=== PATIENT | male | born 1945 | race Caucasian/White ===

== ENCOUNTER 2016-11-02 07:55 | Outpatient (CLI) | payer MEDICARE, OTHER | END 2016-11-02 07:56 | disposition home or self-care (01) | DX: D50.9 Iron deficiency anemia, unspecified (principal) ==

== ENCOUNTER 2017-03-18 08:04 | Outpatient (CLI) | payer MEDICARE, OTHER ==
[2017-03-18 15:11] LABS: BASOPHILS # (AUTO) 0.1 10^3/uL (0.0-0.1); BASOPHILS % (AUTO) 0.8 %; EOSINOPHILS % (AUTO) 11.6 %; HCT - HEMATOCRIT 43.8 % (42.0-52.0); HGB - HEMOGLOBIN 14.8 g/dL (14.0-18.0); LYMPHOCYTES # (AUTO) 2.1 10^3/uL (1.5-3.5); MEAN CORPUSCULAR HEMOGLOBIN 30.2 pg (27.0-31.0); MEAN CORPUSCULAR HGB CONC 33.8 g/dL (32.0-36.0); MEAN CORPUSCULAR VOLUME 89.3 fL (80.0-94.0); MEAN PLATELET VOLUME 7.6 fL (7.4-11.4); MONOCYTES # (AUTO) 0.7 10^3/uL (0.0-1.0); MONOCYTES % (AUTO) 8.6 %; NEUTROPHILS # (AUTO) 4.5 10^3/uL (1.5-6.6); RED CELL DISTRIBUTION WIDTH 13.1 % (12.0-15.0); UNCORRECTED WHITE BLOOD COUNT 8.3 x10^3/uL; WHITE BLOOD COUNT 8.3 x10^3/uL (4.8-10.8)
== END 2017-03-18 08:05 | disposition home or self-care (01) ==
LOC: LAB.R 08:04
PROVIDERS: ATTEND Internal Medicine
DX: D50.9 Iron deficiency anemia, unspecified (principal)
CPT/HCPCS: 82728; 85025

== ENCOUNTER 2017-08-02 09:48 | Outpatient (CLI) | payer MEDICARE, OTHER ==
[2017-08-02 15:30] LABS: BASOPHILS # (AUTO) 0.1 10^3/uL (0.0-0.1); BASOPHILS % (AUTO) 0.9 %; EOSINOPHILS # (AUTO) 0.9 10^3/uL (0.0-0.7); EOSINOPHILS % (AUTO) 10.7 %; HCT - HEMATOCRIT 43.1 % (42.0-52.0); HGB - HEMOGLOBIN 15.1 g/dL (14.0-18.0); LYMPHOCYTES % (AUTO) 24.2 %; MEAN CORPUSCULAR HEMOGLOBIN 31.2 pg (27.0-31.0); MEAN CORPUSCULAR HGB CONC 35.1 g/dL (32.0-36.0); MEAN CORPUSCULAR VOLUME 88.9 fL (80.0-94.0); MEAN PLATELET VOLUME 7.8 fL (7.4-11.4); MONOCYTES # (AUTO) 0.8 10^3/uL (0.0-1.0); MONOCYTES % (AUTO) 9.1 %; NEUTROPHILS # (AUTO) 4.6 10^3/uL (1.5-6.6); NEUTROPHILS % (AUTO) 55.1 %; RED BLOOD COUNT 4.85 10^6/uL (4.70-6.10); RED CELL DISTRIBUTION WIDTH 12.5 % (12.0-15.0); UNCORRECTED WHITE BLOOD COUNT 8.3 x10^3/uL; WHITE BLOOD COUNT 8.3 x10^3/uL (4.8-10.8)
[2017-08-02 15:42] LABS: ALBUMIN/GLOBULIN RATIO 1.8 (1.0-2.2); BILIRUBIN,TOTAL 0.5 mg/dL (0.2-1.0); CALCIUM 8.6 mg/dL (8.5-10.3); CREATININE 0.8 mg/dL (0.6-1.2); TOTAL PROTEIN 6.9 g/dL (6.7-8.2)
== END 2017-08-02 09:49 | disposition home or self-care (01) ==
LOC: LAB.R 09:48
PROVIDERS: ATTEND Internal Medicine
DX: R10.9 Unspecified abdominal pain (principal); D50.9 Iron deficiency anemia, unspecified
CPT/HCPCS: 80053; 82728; 83690; 85025

== ENCOUNTER 2017-08-19 08:44 | Outpatient (CLI) | payer MEDICARE, OTHER ==
--- NOTE | 2017-08-21 14:07 | Ultrasound Report ---
EXAMINATION: COMPLETE ABDOMINAL ULTRASOUND 08/19/2017 CLINICAL INDICATION: Pain. TECHNIQUE: Real-time scanning was performed with nutrition representative static images obtained. FINDINGS: The liver measures 13.8 cm. Hepatic echogenicity is normal. No intrahepatic biliary dilatation or focal parenchymal lesion is present. The common bile duct measures 5 mm. The gallbladder is normal. The pancreas is obscured by bowel gas. The kidneys are normal, with the right measuring 10.6 cm , and the left measuring 10.7 cm. The spleen measures 10.8 cm, and demonstrates normal echotexture. The abdominal aorta is normal in caliber throughout. The inferior vena cava is unremarkable. No free fluid is present. IMPRESSION: NORMAL ABDOMINAL ULTRASOUND. TD: 08/19/2017 14:31 [facility]
--- NOTE | 2017-08-22 10:55 | Ultrasound Report ---
EXAMINATION: COMPLETE ABDOMINAL ULTRASOUND 08/19/2017 CLINICAL INDICATION: Pain. TECHNIQUE: Real-time scanning was performed with retail field representative static images obtained. FINDINGS: The liver measures 13.8 cm. Hepatic echogenicity is normal. No intrahepatic biliary dilatation or focal parenchymal lesion is present. The common bile duct measures 5 mm. The gallbladder is normal. The pancreas is obscured by bowel gas. The kidneys are normal, with the right measuring 10.6 cm, and the left measuring 10.7 cm. The spleen measures 10.8 cm, and demonstrates normal echotexture. The abdominal aorta is normal in caliber throughout. The inferior vena cava is unremarkable. No free fluid is present. IMPRESSION: NORMAL ABDOMINAL ULTRASOUND. LITTLE TD: 08/19/2017 14:31 CHRISTOPHER
== END 2017-08-19 08:45 | disposition home or self-care (01) ==
LOC: DI 08:44
PROVIDERS: ATTEND Internal Medicine
DX: R10.9 Unspecified abdominal pain (principal)
CPT/HCPCS: 76700

== ENCOUNTER 2017-10-02 09:07 | Outpatient (CLI) | payer MEDICARE, OTHER ==
--- NOTE | 2017-10-02 12:15 | XRAY Report ---
DATE OF SERVICE: 10/02/2017 THREE VIEW LEFT KNEE 10/02/2017 CLINICAL INDICATION: Pain. FINDINGS: AP, lateral, sunrise views of the left knee demonstrate no evidence of fracture or dislocation. The joint spaces are preserved. No effusion is present. IMPRESSION: NORMAL LEFT KNEE. TD: 10/02/2017 13:14
== END 2017-10-02 09:08 | disposition home or self-care (01) ==
LOC: DI 09:07
PROVIDERS: ATTEND Internal Medicine
DX: M25.562 Pain in left knee (principal)

== ENCOUNTER 2018-01-16 12:26 | Outpatient (CLI) | payer MEDICARE, OTHER ==
--- NOTE | 2018-01-16 16:50 | MRI Report ---
EXAM: MRI LUMBAR SPINE WITHOUT CONTRAST EXAM DATE: 01/16/2018 01:12 PM. CLINICAL HISTORY: Low back pain associated with a spinal disorder. COMPARISON: Lumbar spine MRI from 08/06/2011. TECHNIQUE: Multiplanar, multisequence T1-weighted and fluid-sensitive sequences of the lumbar spine f rom T12 to S1 without contrast. Other: None. FINDINGS: Spinal Cord: The conus terminates at T12-L1. The conus medullaris and cauda equina are unremarkable. Alignment: Mild levoconvex scoliosis centered at the L2-L3 level. Bone Marrow: Five [id number] lumbar vertebral bodies are assumed. There is an hemangioma at the T10 vertebral body. No acute fracture. Schmorl's nodes at the T10, T11, T12, L1 inferior endplates an d at the L3, L2, T11 superior endplates. Disk Levels/Facets: L5-S1: Left-sided degenerative endplate changes. Severe left-sided and mild right-sided disk space na rrowing. Small posterior left paracentral, foraminal, and extraforaminal disk bulge/osteophyte comple x. Mild to moderate left facet arthropathy. Moderate to severe left subarticular zone stenosis. Sever e left foraminal stenosis. Mild right foraminal stenosis. No change. L4-L5: Degenerative endplate changes which are new. Moderate to severe disk space narrowing. The disk height has decreased since the previous study. The previously seen moderate size posterior central t o left paracentral disk extrusion is no longer present. There is a small disk bulge/osteophyte comple x which is asymmetric towards the left. Moderate ligamentum flavum thickening. Mild to moderate left and mild right facet arthropathy. Mild canal stenosis. Severe left and moderate right subarticular zo ne stenoses. Severe left and mild to moderate right foraminal stenoses. The degree of left foraminal stenosis has increased since the previous study. L3-L4: Severe right-sided and mild left-sided disk space narrowing. Right-sided degenerative endplate changes. Small diffuse disk bulge/osteophyte complex, which is asymmetric towards the right. Moderat e ligamentum flavum thickening. Mild facet arthropathy. Mild canal stenosis. Moderate right and mild left foraminal stenoses. No significant change. L2-L3: Unremarkable. L1-L2: Mild to moderate right facet arthropathy. Mild to moderate right foraminal stenosis. T12-L1: Unremarkable. Musculature: Mild fatty atrophy of the posterior paraspinal muscles. Other: The bladder is distended, and this is unchanged since the previous study. IMPRESSION: 1. Multilevel degenerative disk changes, osteophytosis, ligamentum flavum thickening, and facet arthr opathy. Some of the more significant levels are at L5-S1 and L4-L5. 2. Persistent small posterior left paracentral, foraminal, and extraforaminal disk bulge/osteophyte c omplex at L5-S1. Moderate to severe left subarticular zone stenosis. Severe left and mild right chas inal stenoses. No change. 3. Worsening degenerative disk space narrowing and degenerative endplate changes at L4-L5. The previo usly seen posterior central to left paracentral disk extrusion is no longer present. There is a small disk bulge/osteophyte complex. Mild canal stenosis. Severe left and moderate right subarticular zone stenoses. Worsening severe left foraminal stenosis. Persistent mild to moderate right foraminal sten osis. 4. Mild levoconvex scoliosis. 5. Persistent distended bladder. Comment: The following findings are so common in adults without low back pain that while we report th eir presence, they must be interpreted with caution and in the context of the clinical situation. (Re ricardo Daley et al, Spine 2001) Prevalence of findings in patients without low back pain: Disk degeneration (any evidence): 92% Disk desiccation/T2 signal loss: 83% Disk height loss: 56% Disk bulge: 64% Disk protrusion: 32% Annular tear/high intensity zone: 38% [facility] Referring Provider Line: [phone] SITE ID: [id number]
== END 2018-01-16 12:27 | disposition home or self-care (01) ==
LOC: DI 12:26
PROVIDERS: ATTEND Physical Medicine & Rehabilitation
DX: M51.36 Other intervertebral disc degeneration, lumbar region (principal); M51.26 Other intervertebral disc displacement, lumbar region; M48.061 Spinal stenosis, lumbar region without neurogenic claudication
CPT/HCPCS: 72148

== ENCOUNTER 2022-12-19 11:48 | Outpatient (CLI) | payer MEDICARE, OTHER ==
[2022-12-19] MEDS ORDERED: GADOBUTROL 10 MMOL/10 ML VIAL ONE (11:55)
--- NOTE | 2022-12-19 15:07 | MRI Report ---
PROCEDURE: PELVIS W/WO INDICATIONS: BENIGN PROSTATIC HYPERPLASIA WITH LOWER URINARY TR CONTRAST: gadavist 7.5ml TECHNIQUE: Coronal ultra fast SE, axial T1 FSE with fat saturation, 3-plane nonbreath-hold T2 FSE. After the ad ministration of contrast, dynamic axial, delayed axial and coronal ultra fast GE or 2-D spoiled GE wi th fat saturation through the pelvis. Optional diffusion weighted imaging and ADC may be performed. COMPARISON: None. FINDINGS: Image quality: Diffusion weighted and dynamic contrast enhanced images are diagnostic. Prostate: Gland size is 6.4 x 3.9 x 4.5 cm; ellipsoid gland volume is 58 mL. Prostate lesions: Lesion 1: Location: Right, apex, medial peripheral zone. This is best seen on axial series 5, image 15 and sagittal series 7, image 11. Size: 1.6 x 0.8 cm. T2W signal: Circumscribed, homogenous moderate hypointense focus (PI-RADS 4 or 5). DWI signal: Markedly hyperintense signal (PI-RADS 4-5). ADC signal: Mild hypointense signal (PI-RADS 3). Enhancement: Yes Extracapsular extension: No. No neurovascular involvement. No seminal vesicle involvement. PI-RADS score: 3 Genitourinary system: Bladder wall thickness is normal. Distal ureters are non distended. Bowel and peritoneum: No pathologic free pelvic fluid. Inferior colon and small bowel loops are nor mal in caliber. Nodes and vessels: No pelvic or inguinal adenopathy by size criteria. Iliac vessels are normal in c aliber. Soft tissues: Small left inguinal hernia containing fat. Bones: Bone marrow demonstrates normal overall signal. No suspicious bony lesions. IMPRESSION: PI-RADS 3 lesion in the right peripheral zone of the apex, as above. No lymphadenopathy. No aggressiv e osseous abnormality. Reviewed by: Jamey Bethea on 12/19/2022 3:05 PM PDT Approved by: Jamey Bethea on 12/19/2022 3:05 PM PDT Station ID: [id number]
[2022-12-19] MEDS ORDERED: GADOBUTROL 10 MMOL/10 ML VIAL IVP ONE (16:24)
== END 2022-12-19 11:49 | disposition home or self-care (01) ==
LOC: LAB 11:48
PROVIDERS: ATTEND Student in an Organized Health Care Education/Training Program
DX: N40.1 Benign prostatic hyperplasia with lower urinary tract symptoms (principal); N42.89 Other specified disorders of prostate
CPT/HCPCS: 36415; 72197; 82565; A9585

== ENCOUNTER 2023-04-01 17:10 | Emergency (ER) | payer MEDICARE, OTHER ==
[2023-04-01 17:27] VITALS: BP 160/75
--- NOTE | 2023-04-01 18:15 | ED Physician Documentation ---
History of Present Illness - Stated complaint Stated Complaint: - Chief complaint Chief Complaint: Abd Pain - History obtained from History obtained from: Patient - History of Present Illness Timing: Today Pain level max: 4 Pain level now: 3 - Additonal information Additional information: Patient is a 77-year-old male who presents to the emergency department stating that his urinary catheter stopped draining this afternoon. He had a TURP performed last week at [facility] in [place]. He states that there was blood initially, but that has been slowly decreasing daily. He states he has abdominal discomfort, lower, like his bladder is full and he cannot urinate. No fevers. No chills. Nothing makes it better or worse Review of Systems Constitutional: denies: Fever, Chills Respiratory: denies: Cough GI: denies: Nausea, Vomiting, Diarrhea PD PAST MEDICAL HISTORY - Past Medical History Cardiovascular: None Respiratory: None GI:  : None Psych: None Musculoskeletal: None Derm: Other - Past Surgical History General: Colonoscopy HEENT: Tonsil/Adenoidectomy - Present Medications Home Medications: Ambulatory Orders Medication Instructions Recorded Confirmed Ciprofloxacin HCl [Cipro] 500 mg PO DAILY 04/01/23 04/01/23 Docusate Sodium 100Mg Capsule 100 mg PO DAILY 04/01/23 04/01/23 [Colace 100Mg Capsule] Phenazopyridine HCl [Pyridium] 200 mg PO TID 04/01/23 04/01/23 Tadalafil [Cialis] 5 mg PO DAILY 04/01/23 04/01/23 oxyCODONE [Roxicodone] 5 mg PO PRN PRN 04/01/23 04/01/23 - Allergies Allergies/Adverse Reactions: Allergies Allergy/AdvReac Type Severity Reaction Status Date / Time Penicillins Allergy Severe Anaphylaxis Verified 04/01/23 17:18 PD ED PE NORMAL - Vitals Vital signs reviewed: Yes - General General: Alert and oriented X 3, No acute distress - Cardiac Cardiac: RRR - Respiratory Respiratory: No respiratory distress, Clear bilaterally - Abdomen Abdomen: Soft, Non tender, Non distended - Derm Derm: Warm and dry - Neuro Neuro: Alert and oriented X 3 - Psych Psych: Normal mood, Normal affect Results - Vitals Vitals: Vital Signs - 24 hr 04/01/23 17:18 Temperature 36.7 C Heart Rate 70 Respiratory 16 Rate Blood Pressure 160/75 H O2 Saturation 97 Oxygen O2 Source Room air PD Medical Decision Making - ED course Complexity details: re-evaluated patient, considered differential, d/w patient, d/w family ED course: The patient's urinary catheter was flushed and is flowing freely. Approximately 800 mL of urine was drained. Patient is asymptomatic. The catheter will be left in place until his urology appointment tomorrow. Patient counseled regarding signs and symptoms for which I believe and urgent re-evaluation would be necessary. Patient with good understanding of and agreement to plan and is comfortable going home at this time This document was made in part using voice recognition software. While efforts are made to proofread this document, sound alike and grammatical errors may occur. Departure - Departure Disposition: 01 Home, Self Care Clinical Impression: Urinary catheter dysfunction Qualifiers: Encounter type: initial encounter Qualified Code(s): T83.018A - Breakdown (mechanical) of other urinary catheter, initial encounter Condition: Good Instructions: ED Catheter Care Flores Comments: Please follow-up with your urologist tomorrow as scheduled. Please return if you worsen. Your urinary catheter was flushed today and appears to be draining well now. Forms: PCP List Discharge Date/Time: 04/01/23 18:52
== END 2023-04-01 18:52 | disposition home or self-care (01) ==
LOC: ED 17:10
DX: T83.018A Breakdown (mechanical) of other urinary catheter, initial encounter (principal); R33.9 Retention of urine, unspecified
CPT/HCPCS: 51700; 99283